=== PATIENT | female | born 1950 | race Caucasian/White ===

== ENCOUNTER 2017-08-17 04:13 | Emergency (ER) | END 2017-08-17 08:58 | disposition home or self-care (01) ==

== ENCOUNTER 2017-08-26 08:35 | Emergency (ER) | END 2017-08-26 11:29 | disposition home or self-care (01) ==

== ENCOUNTER 2017-09-01 08:02 | Emergency (ER) | END 2017-09-01 08:42 | disposition home or self-care (01) ==